=== PATIENT | female | born 1990 | race Asian ===

== ENCOUNTER 2024-09-20 10:45 | Inpatient (IN) | payer OTHER ==
[~2024-09-20] VITALS: Ht 167.6 cm; Wt 70.8 kg
[2024-09-20 11:47] LABS: BASOPHILS % 0.3 % (0.0-2.0); EOSINOPHILS % 1.6 % (0.0-5.0); HEMATOCRIT. 23.9 % (36.0-48.0); LYMPHOCYTES % 25.7 % (20.0-50.0); MEAN CORPUSCULAR HGB CONC 27.7 g/dL (31.0-37.0); MEAN CORPUSCULAR VOLUME 54.2 fL (81.0-99.0); MEAN PLATELET VOLUME 9.1 fl (7.4-10.4); MONOCYTES % 6.2 % (2.0-8.0); NEUTROPHILS % 66.2 % (40.0-76.0); PLATELET 317 x1000/uL (130-400); RED BLOOD CELL COUNT 4.41 mill/uL (4.2-5.4); RED CELL DISTRIBUTION WIDTH 20.6 % (11.6-14.6); WHITE BLOOD COUNT 6.9 x1000/uL (4.5-11.0)
[2024-09-20 11:57] LABS: CHLORIDE 107 mEq/L (98-107); POTASSIUM 3.2 mEq/L (3.5-5.1); SODIUM 139 mEq/L (136-145)
[2024-09-20 11:58] LABS: CALCIUM 9.2 mg/dL (8.7-10.4); CARBON DIOXIDE 23 mEq/L (21-32)
[2024-09-20 12:02] LABS: HCG SCREEN NEGATIVE
[2024-09-20 12:03] LABS: CREATININE 0.6 mg/dL (0.6-1.0); GLUCOSE 98 mg/dL (70-105); UREA NITROGEN BLOOD 11 mg/dL (9-23)
[2024-09-20 12:04] LABS: ALANINE AMINOTRANSFERASE < 7 IU/L (10-49)
[2024-09-20 12:05] LABS: ALBUMIN 4.4 g/dL (3.2-4.8); ASPARTATE AMINOTRANSFERASE 15 IU/L (<34); BILIRUBIN DIRECT 0.2 mg/dL (<=3.0); BILIRUBIN TOTAL 0.5 mg/dL (0.1-1.0); PROTEIN TOTAL 7.7 g/dL (6.0-8.3)
[2024-09-20 12:17] LABS: ADD RBC MORPHOLOGY YES; DIFFERENTIAL COMMENT 1
[2024-09-20 12:22] LABS: HEMOGLOBIN. 6.6 g/dL (12.0-16.0)
[2024-09-20 12:39] LABS: ANISOCYTOSIS 3+; HYPOCHROMASIA 2+; MICROCYTOSIS 4+; TEAR DROP CELLS 1+
[2024-09-20 12:41] LABS: PLATELET ESTIMATE NORMAL
[2024-09-20 12:54] LABS: TROPONIN I HIGH SENSITIVITY < 4 ng/L (3.0-34)
[2024-09-20] MEDS: POTASSIUM CHLORIDE 20MEQ TABLET SR PO ONE (13:02)
[2024-09-20] MEDS: KETOROLAC 15MG/ML VIAL IM ONE (13:02)
[2024-09-20] MEDS: ACETAMINOPHEN 325MG TABLET PO ONE (13:03)
[2024-09-20] MEDS: ONDANSETRON 4MG ODT PO STA (13:03)
[2024-09-20] MEDS ORDERED: ACETAMINOPHEN 325MG TABLET PO PRN ×2 (16:15)
[2024-09-20] MEDS ORDERED: GUAIFENESIN 200MG/10ML SUGAR FREE UDC PO PRN (16:15)
[2024-09-20] MEDS ORDERED: DOCUSATE SODIUM 100MG CAPSULE PO PRN (16:15)
[2024-09-20] MEDS ORDERED: IPRATROPIUM/ALBUTEROL 0.5-3(2.5)MG/3ML NEB HHN PRN (16:15)
[2024-09-20] MEDS ORDERED: LORAZEPAM 0.5MG TABLET PO PRN (16:15)
[2024-09-20] MEDS ORDERED: ONDANSETRON HCL 4MG/2ML INJ IV PRN (16:15)
[2024-09-20 18:30] LABS: IRON 14 ug/dL (50-170)
[2024-09-20 18:32] LABS: LACTATE DEHYDROGENASE 178 IU/L (120-246)
[2024-09-20 18:33] LABS: TOTAL IRON BINDING CAPACITY 367 ug/dl (250-425)
[2024-09-20 18:37] LABS: FOLIC ACID (FOLATE) SERUM 13.51 ng/mL (>5.38); VITAMIN B12 SERUM 646 pg/mL (211-911)
[2024-09-20 18:39] LABS: FERRITIN 3 ng/mL (10-291)
[2024-09-20 18:51] VITALS: BP 115/65; PULSE 71; RESP 18; TEMP 36.5292
[2024-09-20 20:00] VITALS: BP 111/64; PULSE 65; RESP 18; TEMP 36.3918; O2SAT 96
[2024-09-20 23:32] LABS: CREATINE KINASE MB FRACTION < 0.5 ng/mL (0.5-3.6); TROPONIN I HIGH SENSITIVITY < 4 ng/L (3.0-34)
[2024-09-20 23:33] LABS: CREATINE KINASE 70 IU/L (34-145)
[2024-09-21] VITALS: BP 102/55; PULSE 61; RESP 18; TEMP 36.78072; O2SAT 100
[2024-09-21 04:00] VITALS: BP 104/30; PULSE 68; RESP 18; TEMP 36.114; O2SAT 96
[2024-09-21 07:02] LABS: HEMOGLOBIN 7.6 g/dL (12.0-16.0); MEAN CORPUSCULAR HEMOGLOBIN 17.2 pg (28.0-32.0); MEAN CORPUSCULAR HGB CONC 29.1 g/dL (31.0-37.0); MEAN CORPUSCULAR VOLUME 59.1 fL (81.0-99.0); RED CELL DISTRIBUTION WIDTH 21.2 % (11.6-14.6); WHITE BLOOD COUNT 4.8 x1000/uL (4.5-11.0)
[2024-09-21 07:10] LABS: CARBON DIOXIDE 24 mEq/L (21-32); CHLORIDE 109 mEq/L (98-107); POTASSIUM 3.6 mEq/L (3.5-5.1); SODIUM 141 mEq/L (136-145)
[2024-09-21 07:11] LABS: CALCIUM 8.6 mg/dL (8.7-10.4)
[2024-09-21 07:15] LABS: CREATININE 0.7 mg/dL (0.6-1.0); GLUCOSE 89 mg/dL (70-105)
[2024-09-21 07:16] LABS: CREATINE KINASE MB FRACTION < 0.5 ng/mL (0.5-3.6); UREA NITROGEN BLOOD 8 mg/dL (9-23)
[2024-09-21 07:17] LABS: TROPONIN I HIGH SENSITIVITY 4 ng/L (3.0-34)
[2024-09-21 07:18] LABS: CREATINE KINASE 53 IU/L (34-145); PHOSPHORUS 3.8 mg/dL (2.5-4.9)
[2024-09-21 08:00] VITALS: BP 108/44; PULSE 57; RESP 18; TEMP 36.61404; O2SAT 98
[2024-09-21 09:17] LABS: PROTHROMBIN TIME 11.1 sec (9.6-11.0)
[2024-09-21 09:27] LABS: THYROID STIMULATING HORMONE 2.72 uIU/mL (0.55-4.78)
[2024-09-21 09:28] LABS: T4 FREE 1.09 ng/dL (0.89-1.76)
[2024-09-21 09:57] LABS: PLATELET 250 x1000/uL (130-400)
[2024-09-21 12:00] VITALS: BP 111/30; PULSE 61; RESP 20; TEMP 36.61404; O2SAT 100
[2024-09-21 16:00] VITALS: BP 117/49; PULSE 60; RESP 20; TEMP 36.78072; O2SAT 99
[2024-09-21] MEDS: SODIUM CHLORIDE 0.9% 1,000 ML IV SCH (16:33)
[2024-09-21] MEDS: FERROUS SULFATE 325MG TABLET PO SCH (16:49)
[2024-09-21 18:51] LABS: CLARITY URINE CLEAR (CLEAR); COLOR URINE YELLOW (YELLOW); GLUCOSE URINE NEGATIVE (NEGATIVE); KETONES URINE NEGATIVE (NEGATIVE); LEUKOCYTE ESTERASE URINE 2+ (NEGATIVE); NITRITE URINE NEGATIVE (NEGATIVE); OCCULT BLOOD URINE NEGATIVE (NEGATIVE); PROTEIN URINE NEGATIVE (NEGATIVE); SPECIFIC GRAVITY URINE 1.022 (1.005-1.030)
[2024-09-21 19:07] LABS: BACTERIA URINE 1+; SQUAMOUS EPITHELIAL CELL URINE 1+ /lpf (RARE/1+); TRICHOMONAS URINE 1+
[2024-09-21 19:10] LABS: *AMPHETAMINES SCREEN URINE NEGATIVE (NEGATIVE); *BARBITURATES SCREEN URINE NEGATIVE (NEGATIVE); *BENZODIAZEPINES SCREEN URINE NEGATIVE (NEGATIVE); *COCAINE SCREEN URINE NEGATIVE (NEGATIVE)
[2024-09-21 19:11] LABS: CANNABINOID URINE SCREEN NEGATIVE (NEGATIVE); ECSTASY MDMA SCREEN URINE NEGATIVE (NEGATIVE); METHADONE URINE SCREEN NEGATIVE (NEGATIVE); OPIATES URINE SCREEN NEGATIVE (NEGATIVE)
[2024-09-21 19:30] LABS: PHENCYCLIDINE URINE SCREEN NEGATIVE (NEGATIVE)
[2024-09-21 20:00] VITALS: BP 96/48; PULSE 54; RESP 18; TEMP 36.22512; O2SAT 100
[2024-09-22] VITALS: BP 105/46; PULSE 58; RESP 18; TEMP 36.3918; O2SAT 100
[2024-09-22 04:00] VITALS: BP 104/40; PULSE 46; RESP 17; TEMP 36.6696; O2SAT 99
[2024-09-22 07:20] LABS: CARBON DIOXIDE 21 mEq/L (21-32); CHLORIDE 111 mEq/L (98-107); POTASSIUM 3.8 mEq/L (3.5-5.1); SODIUM 141 mEq/L (136-145)
[2024-09-22 07:21] LABS: CALCIUM 8.5 mg/dL (8.7-10.4)
[2024-09-22 07:25] LABS: CREATININE 0.6 mg/dL (0.6-1.0)
[2024-09-22 07:26] LABS: GLUCOSE 87 mg/dL (70-105); UREA NITROGEN BLOOD 8 mg/dL (9-23)
[2024-09-22 07:58] LABS: HEMATOCRIT 25.9 % (36.0-48.0); HEMOGLOBIN 7.5 g/dL (12.0-16.0); MEAN CORPUSCULAR HEMOGLOBIN 17.3 pg (28.0-32.0); MEAN CORPUSCULAR HGB CONC 28.9 g/dL (31.0-37.0); MEAN CORPUSCULAR VOLUME 59.9 fL (81.0-99.0); RED BLOOD CELL COUNT 4.32 mill/uL (4.2-5.4); RED CELL DISTRIBUTION WIDTH 21.6 % (11.6-14.6); WHITE BLOOD COUNT 5.2 x1000/uL (4.5-11.0)
[2024-09-22 08:00] VITALS: BP 118/46; PULSE 70; RESP 19; TEMP 36.28068; O2SAT 99
[2024-09-22] MEDS ORDERED: ASCO-339 MT (11:27)
[2024-09-22] MEDS ORDERED: FERR-63 PO (11:27)
[2024-09-22 14:18] VITALS: BP 119/50; PULSE 77; TEMP 97.8; O2SAT 100
[2024-09-22 18:01] LABS: PLATELET 230 x1000/uL (130-400)
== END 2024-09-22 15:20 | disposition home or self-care (01) | DRG 812 ==
LOC: ER 11:05 → EDBEDREQ 12:56 → 6EST 14:36 → EDBD 14:36 → EDBEDREQ 14:41 → 8EST 23:38
PROVIDERS: ADMIT Internal Medicine; ATTEND Internal Medicine
DX: D64.9 Anemia, unspecified (principal); E86.0 Dehydration; R10.13 Epigastric pain; E87.6 Hypokalemia; F41.9 Anxiety disorder, unspecified
CPT/HCPCS: 36415; 74176; 76705; 76856; 80048; 80076; 80305; 81003; 82550; 82553; 82607; 82728; 82746; 83540; 83550; 83615; 83735; 84100; 84439; 84443; 84484; 84703; 85025; 85027; 85044; 85379; 86850; 86900; 86920; 93005; 99285; J1885; J7030; P9016; Q0162

== ENCOUNTER 2024-09-25 17:46 | Emergency (ER) | payer OTHER ==
[~2024-09-25] VITALS: Ht 170.2 cm; Wt 71.0 kg
[~2024-09-25 17:46] MED LIST: ASCO-339 MT; FERR-63 PO
[2024-09-25 17:52] VITALS: BP_DIAS 51; O2SAT 100
[2024-09-25 21:56] LABS: BASOPHILS % 0.1 % (0.0-2.0); EOSINOPHILS % 1.7 % (0.0-5.0); HEMOGLOBIN. 8.5 g/dL (12.0-16.0); LYMPHOCYTES % 27.4 % (20.0-50.0); MEAN CORPUSCULAR HEMOGLOBIN 17.9 pg (28.0-32.0); MEAN CORPUSCULAR HGB CONC 29.3 g/dL (31.0-37.0); MONOCYTES % 7.7 % (2.0-8.0); NEUTROPHILS % 63.1 % (40.0-76.0); PLATELET 259 x1000/uL (130-400); RED BLOOD CELL COUNT 4.75 mill/uL (4.2-5.4); RED CELL DISTRIBUTION WIDTH 29.7 % (11.6-14.6)
[2024-09-25 22:02] LABS: CHLORIDE 107 mEq/L (98-107); POTASSIUM 3.8 mEq/L (3.5-5.1); SODIUM 138 mEq/L (136-145)
[2024-09-25 22:03] LABS: CALCIUM 9.6 mg/dL (8.7-10.4); CARBON DIOXIDE 22 mEq/L (21-32)
[2024-09-25 22:07] LABS: ADD RBC MORPHOLOGY YES; DIFFERENTIAL COMMENT 1
[2024-09-25 22:08] LABS: CREATININE 0.6 mg/dL (0.6-1.0); GLUCOSE 99 mg/dL (70-105); UREA NITROGEN BLOOD 15 mg/dL (9-23)
[2024-09-25 22:16] LABS: PLATELET ESTIMATE NORMAL
[2024-09-25 22:17] LABS: HYPOCHROMASIA 2+; MICROCYTOSIS 3+; OVALOCYTES 1+; TARGET CELLS 1+
[2024-09-25] MEDS ORDERED: FERR1TAB91 MT (22:17)
[2024-09-25 22:30] VITALS: BP_SYST 60; PULSE 73; RESP 18; TEMP 37.05852; O2SAT 100
== END 2024-09-25 23:07 | disposition home or self-care (01) ==
LOC: ER 17:46
DX: D50.9 Iron deficiency anemia, unspecified (principal)
CPT/HCPCS: 36415; 80048; 85025; 99283